=== PATIENT | male | born 1985 | race African-American/Black ===

== ENCOUNTER 2018-09-26 19:27 | Emergency (ER) | payer BC ==
[2018-09-26 19:36] VITALS: BP 123/77; PULSE 74; TEMP 97.8; BMI 23.7
--- NOTE | 2018-09-26 19:37 | PDOC ---
Rapid Medical Evaluation Chief Complaint: Injury Time Seen by Provider: 09/26/18 19:34 Medical Evaluation: Allergies Allergy/AdvReac Type Severity Reaction Status Date / Time No Known Allergies Allergy Verified 09/26/18 19:34 09/26/18 19:35 I have performed a brief in-person evaluation of this patient. The patient presents with a chief complaint of: Lt knee pain s/p injury during soccer game yesterday. Report incfreased pain with ambulation Pertinent physical exam findings: TTP over b/l collateral ligament of left knee. no joint effusion I have ordered the following: LT knee x-rays The patient will proceed to the ED for further evaluation. Discharge Disposition - Diagnosis Left knee injury Qualifiers: Encounter type: initial encounter Qualified Code(s): S89.92XA - Unspecified injury of left lower leg, initial encounter - Discharge Dispostion Condition at time of disposition: Stable - Referrals - Patient Instructions - Post Discharge Activity
--- NOTE | 2018-09-26 21:06 | PDOC ---
History of Present Illness - General Chief Complaint: Injury Stated Complaint: KNEE INJURY Time Seen by Provider: 09/26/18 19:34 - History of Present Illness Initial Comments: 09/26/18 21:05 33-year-old male without comorbidities presents for evaluation of left knee pain after soccer injury. He describes a twisting injury and hearing an audible snap. Past History - Past Medical History Allergies/Adverse Reactions: Allergies Allergy/AdvReac Type Severity Reaction Status Date / Time No Known Allergies Allergy Verified 09/26/18 19:34 Home Medications: Ambulatory Orders Cyclobenzaprine HCl [Flexeril -] 10 mg PO Q8H PRN #21 tablet 05/27/15 Naproxen [Naprosyn -] 500 mg PO BID PRN #14 tablet 05/27/15 Oxycodone HCl/Acetaminophen [Percocet 5/325 -] 1 tab PO Q8H PRN #6 tablet COPD: No - Suicide/Smoking/Psychosocial Hx Smoking History: Never smoked Review of Systems - Review of Systems Musculoskeletal: Yes: Joint Pain *Physical Exam - Vital Signs Last Vital Signs Temp Pulse Resp BP Pulse Ox 97.8 F 74 18 123/77 100 09/26/18 19:34 09/26/18 19:34 09/26/18 19:34 09/26/18 19:34 09/26/18 19:34 - Physical Exam Comments: 09/26/18 21:05 Left knee skin color and temperature are normal. Extensor mechanism is intact. Large intra-articular effusion. Tenderness over the lateral condyle of the femur. No endpoint on Terrie's examination otherwise stable. By and calf are soft and nontender negative straight leg raise test normal hip and ankle range of motion. No gross sensorimotor deficits. Is neurovascularly intact. Medical Decision Making - Medical Decision Making 09/26/18 21:04 Left knee ACL tear, weight-bear as tolerated with crutches and knee immobilizer follow-up with Ortho discourage the use of Motrin for preoperative purposes 09/26/18 21:06 x-rays reviewed and are negative for fx *DC/Admit/Observation/Transfer Diagnosis at time of Disposition: ACL (anterior cruciate ligament) rupture Left knee injury Qualifiers: Encounter type: initial encounter Qualified Code(s): S89.92XA - Unspecified injury of left lower leg, initial encounter - Discharge Dispostion Disposition: HOME Condition at time of disposition: Stable Decision to Admit order: No - Referrals Referrals: Fausto Mane DO [Staff Physician] - - Patient Instructions Printed Discharge Instructions: DI for Anterior Cruciate Ligament Injury, Anterior Cruciate Ligament Injury Additional Instructions: At this point only take Tylenol for pain. He may weight-bear as tolerated with crutches and the knee immobilizer. Follow-up with orthopedic surgery without fail in the next 1-2 days for further evaluation and treatment options and return to the emergency room should symptoms worsen. - Post Discharge Activity
== END 2018-09-26 21:57 | disposition home or self-care (01) ==
LOC: JERFT 19:27
PROC: 2W3RXYZ Immobilization of Left Lower Leg using Other Device (ICD-10-PCS; principal; 2018-09-26)
DX: S83.512A Sprain of anterior cruciate ligament of left knee, initial encounter (principal); X50.1XXA Overexertion from prolonged static or awkward postures, initial encounter; Y93.66 Activity, soccer; Y92.322 Soccer field as the place of occurrence of the external cause; Y99.8 Other external cause status
CPT/HCPCS: 73562-TC-LT-FY; 99281-25

== ENCOUNTER 2018-10-31 11:26 | Day surgery (SDC) | payer BC ==
[2018-10-24 13:15] VITALS: BMI 23.7
[2018-10-31] MEDS ORDERED: SODIUM CHLORIDE 0.9% P/F 10 ML VIAL IJ ONE (13:38)
[2018-10-31] MEDS ORDERED: BUPIVACAINE HCL/PF (5 MG/ML) 30 ML VIAL IJ ONE (13:38)
[2018-10-31] MEDS ORDERED: MIDAZOLAM HCL 2 MG/2 ML SINGLE DOSE VIAL ONE ×2 (13:38→13:47)
[2018-10-31] MEDS ORDERED: fentaNYL CITRATE 250 MCG/5 ML VIAL ONE ×2 (14:15→16:32)
[2018-10-31] MEDS ORDERED: PROPOFOL 20 ML ONE (17:41)
[2018-10-31] MEDS ORDERED: ONDANSETRON 4 MG/2 ML VIAL IVPUSH PRN (18:11)
[2018-10-31] MEDS ORDERED: oxyCODONE HCL 5 MG TABLET PO PRN ×2 (18:11)
[2018-10-31] MEDS ORDERED: PROMETHAZINE HCL 25 MG/1 ML VIAL IVPUSH PRN (18:11)
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
[2018-10-31] MEDS ORDERED: oxyCODONE HCL 5 MG TABLET ONE (18:50)
[2018-10-31 18:56] VITALS: TEMP 98.1
[2018-10-31 20:06] VITALS: BP 115/72; PULSE 76
--- NOTE | 2018-11-02 14:55 | PATH ---
Surgical Pathology Report Patient Name: DIO ADAME [facility]. Rec. #: [id number] /Age/Gender: 1985 (Age: 33) / M Account: [id number] Location: [facility] AMBULATORY Taken: 10/31/2018 Received: 10/31/2018 Reported: 11/02/2018 Physicians: Fausto Mane MD Specimen(s) Received LEFT KNEE SHAVINGS Clinical History Left knee ACL rupture Final Diagnosis KNEE, LEFT, ARTHROSCOPIC SHAVINGS: FIBROCARTILAGINOUS TISSUE AND FIBROSYNOVIAL TISSUE SHOWING REACTIVE CHANGES. Electronically Signed Candy Lal M.D. Gross Description Received in formalin, labeled "left knee shavings," is a 4.4 x 4.0 x 0.3 cm. aggregate of montague-yellow soft tissue fragments. A freight representative portion is submitted in one cassette. /11/01/2018 saudi/11/01/2018
== END 2018-10-31 20:00 | disposition home or self-care (01) ==
LOC: FASU 11:26
PROVIDERS: ATTEND Orthopaedic Surgery Sports Medicine
PROC: 0MSP4ZZ Reposition Left Knee Bursa and Ligament, Percutaneous Endoscopic Approach (ICD-10-PCS; principal; 2018-10-31 15:21)
PROC: 0SBD4ZZ Excision of Left Knee Joint, Percutaneous Endoscopic Approach (ICD-10-PCS; 2018-10-31 15:21)
DX: S83.512A Sprain of anterior cruciate ligament of left knee, initial encounter (principal); S83.282A Other tear of lateral meniscus, current injury, left knee, initial encounter; M22.42 Chondromalacia patellae, left knee; M65.862 Other synovitis and tenosynovitis, left lower leg; V49.9XXA Car occupant (driver) (passenger) injured in unspecified traffic accident, initial encounter; Y93.89 Activity, other specified; Y92.488 Other paved roadways as the place of occurrence of the external cause
CPT/HCPCS: 73560-TC-LT-FY; 88304-TC; 94760